=== PATIENT | male | born 1960 | race African-American/Black ===

== ENCOUNTER 2017-10-03 15:04 | Observation (INO) ==
[2017-10-03] MEDS ORDERED: ASPIRIN 325 MG TABLET PO STA (17:56)
[2017-10-03] MEDS ORDERED: ALUM/MAG/SIMETH/LIDO VISC 1:1 30 ML BOTTLE PO STA (17:56)
[2017-10-03] MEDS ORDERED: ONDANSETRON 4 MG/2 ML VIAL IV STA (17:56)
[2017-10-03] MEDS ORDERED: MORPHINE 4 MG/1 ML VIAL IV STA (17:56)
[2017-10-03] MEDS ORDERED: NITROGLYCERIN 2% OINT 1 INCH/GM PACK TOP STA (17:56)
[2017-10-03 18:31] LABS: Albumin 3.7 G/DL (3.4-5.0); Bilirubin,Total 0.9 MG/DL (0.2-1.0); Calcium 8.9 MG/DL (8.5-10.1); Osmolality,Calculated 278.4 MOS/KG (273-304); Total Protein 7.8 G/DL (6.4-8.3)
[2017-10-03 18:42] LABS: Basophils % 0.7 % (0.0-0.8); Eosinophils # 0.2 10*3/uL (0.0-0.87); Eosinophils % 3.6 % (0.00-10.9); Hematocrit 38.7 VOL% (42.0-52.0); Hemoglobin 13.3 GM/DL (14.0-18.0); Immature Granulocytes % 0.5 %; Immature Granulocytes Absolute 0.02 #; Lymphocytes # 1.2 10*3/uL (1.4-4.0); Lymphocytes % 27.4 % (21.2-54.2); Mean Corpuscular HGB Conc 34.4 GM/DL (32-36); Mean Corpuscular Hemoglobin 29 PG (27-34); Mean Corpuscular Volume 85.2 FL (87-102); Mean Platelet Volume 12.6 FL (9.6-12.0); Monocytes # 0.5 10*3/uL (0.11-0.8); Monocytes % 12.9 % (1.7-12.7); Neutrophils # 2.3 10*3/uL (1.4-7.4); Neutrophils % 54.9 % (38.7-73.9); Platelet Count 136 T/CUMM (130-400); Red Blood Count 4.54 MC/CUMM (3.8-5.5); Red Cell Distribution Width 13.3 % (9.3-17.3); White Blood Count 4.2 T/CUMM (4-12)
[2017-10-03] MEDS ORDERED: ENOXAPARIN 100 MG/ML SYRINGE SUBCUT STA (18:53)
[2017-10-03 18:55] LABS: INR 1.1; PT Patient Result 11.6 SECS
[2017-10-03] MEDS ORDERED: MORPHINE 4 MG/1 ML VIAL IV PRN (19:56)
[2017-10-03] MEDS ORDERED: ONDANSETRON 4 MG/2 ML VIAL IV PRN (19:56)
[2017-10-03] MEDS ORDERED: oxyCODONE IR 5 MG TABLET PO PRN (19:59)
[2017-10-03] MEDS ORDERED: ENOXAPARIN 40 MG/0.4 ML SYRINGE SUBCUT SCH (20:00)
[2017-10-03] MEDS ORDERED: KETOROLAC 30 MG/1 ML VIAL IV STA (20:04)
[2017-10-03] MEDS ORDERED: NITROGLYCERIN SL 0.4 MG TABLET SL PRN (20:48)
[2017-10-03] MEDS: PREGABALIN 50 MG CAPSULE PO SCH (22:31)
[2017-10-03] MEDS: GABAPENTIN 400 MG CAPSULE PO SCH (22:32)
[2017-10-03] MEDS: DIAZEPAM 5 MG TABLET PO SCH (22:32)
[2017-10-04 01:00] LABS: Basophils % 0.8 % (0.0-0.8); Eosinophils # 0.1 10*3/uL (0.0-0.87); Eosinophils % 3.7 % (0.00-10.9); Hematocrit 36.8 VOL% (42.0-52.0); Hemoglobin 12.8 GM/DL (14.0-18.0); Immature Granulocytes % 0.3 %; Immature Granulocytes Absolute 0.01 #; Lymphocytes # 1.4 10*3/uL (1.4-4.0); Lymphocytes % 35.7 % (21.2-54.2); Mean Corpuscular HGB Conc 34.8 GM/DL (32-36); Mean Corpuscular Hemoglobin 30 PG (27-34); Monocytes # 0.6 10*3/uL (0.11-0.8); Monocytes % 16.8 % (1.7-12.7); Neutrophils # 1.6 10*3/uL (1.4-7.4); Neutrophils % 42.7 % (38.7-73.9); Platelet Count 134 T/CUMM (130-400); Red Blood Count 4.33 MC/CUMM (3.8-5.5); Red Cell Distribution Width 13.3 % (9.3-17.3); White Blood Count 3.8 T/CUMM (4-12)
[2017-10-04 01:18] LABS: Calcium 8.3 MG/DL (8.5-10.1); Potassium 3.6 MMOL/L (3.5-5.1); Risk Ratio 6.75; Thyroid Stimulating Hormone 1.67 uIU/ml (0.358-3.74); VLDL CHOLESTEROL 107.2 MG/DL
[2017-10-04 01:30] LABS: Band Neutrophils 1 % (0-10); Eosinophils 1 % (0-10); Lymphocytes 53 % (20-55); Segmented Neutrophils 31 % (50-85)
[2017-10-04 01:32] LABS: Giant Platelets Few; Platelet Estimate Normal
[2017-10-04 01:33] LABS: Total Cells Counted 100
[2017-10-04 03:31] LABS: Apearance,Urine Slightly Hazy (Clear); Bilirubin,Urine Negative (Negative); Blood, Urine Moderate mg/dL (Negative); Glucose,Urine (UA) Negative (Negative); Ketones,Urine Negative (Negative); Mucus,Urine Many /LPF (Occasional); Nitrite,Urine Negative (Negative); Protein,Urine Negative; RBC,Urine 41 /HPF (0-4); Squamous Epithelial Cell,Urine Occasional /HPF (0-10); Urine Color Yellow (Yellow); Urine Specific Gravity 1.015 (1.001-1.035); Urine Urobilinogen < 2.0 EU/DL (0.2-1.0); WBC,Urine 10 /HPF (0-6)
[2017-10-04 03:37] LABS: Barbiturates Screen,Urine Negative (Negative); Benzodiazepines Screen,Urine Positive (Negative); Cannabinoid Screen,Urine Negative (Negative); Opiate Screen,Urine Positive (Negative); Phencyclidine Screen,Urine Negative (Negative)
[2017-10-04 10:24] LABS: Troponin I Only 0.095 NG/ML (0.00-0.045)
[2017-10-04] MEDS: DOXAZOSIN 4 MG TABLET PO SCH (11:38)
[2017-10-04] MEDS: GABAPENTIN 400 MG CAPSULE PO SCH ×3 (11:38→20:29)
[2017-10-04] MEDS: PREGABALIN 50 MG CAPSULE PO SCH ×3 (11:39→20:29)
[2017-10-04] MEDS: ASPIRIN EC 81 MG TABLET PO SCH (11:42)
[2017-10-04] MEDS: NAPROXEN 500 MG TABLET PO SCH ×2 (11:42→18:21)
[2017-10-04] MEDS: PANTOPRAZOLE 40 MG TABLET PO SCH (11:43)
[2017-10-04] MEDS: amLODIPine 10 MG TABLET PO SCH (11:43)
[2017-10-04] MEDS: DIAZEPAM 5 MG TABLET PO SCH ×2 (11:44→20:29)
[2017-10-04 13:44] LABS: CKMB % 1.1 %; Troponin I Only 0.068 NG/ML (0.00-0.045)
[2017-10-04] MEDS: SODIUM CHLORIDE 0.9% 1,000 ML IV SCH ×2 (15:32→23:17)
[2017-10-04] MEDS ORDERED: ENOXAPARIN 40 MG/0.4 ML SYRINGE SUBCUT SCH (18:00)
[2017-10-04] MEDS ORDERED: ATORVASTATIN 40 MG TABLET PO SCH (21:00)
[2017-10-05] MEDS ORDERED: POLYETHYLENE GLYCOL POWDER 17 GM PACK PO PRN (03:05)
[2017-10-05] MEDS: SODIUM CHLORIDE 0.9% 1,000 ML IV SCH (07:24)
[2017-10-05 08:04] VITALS: BP 161/86
[2017-10-05] MEDS: PANTOPRAZOLE 40 MG TABLET PO SCH (08:29)
[2017-10-05] MEDS: amLODIPine 10 MG TABLET PO SCH (08:29)
[2017-10-05] MEDS: DIAZEPAM 5 MG TABLET PO SCH (08:29)
[2017-10-05] MEDS: PREGABALIN 50 MG CAPSULE PO SCH (08:29)
[2017-10-05] MEDS: DOXAZOSIN 4 MG TABLET PO SCH (08:29)
[2017-10-05] MEDS: NAPROXEN 500 MG TABLET PO SCH (08:29)
[2017-10-05] MEDS: GABAPENTIN 400 MG CAPSULE PO SCH (08:29)
[2017-10-05] MEDS: ASPIRIN EC 81 MG TABLET PO SCH (08:30)
[2017-10-05 08:59] LABS: CKMB % 1.3 %; Troponin I Only 0.031 NG/ML (0.00-0.045)
== END 2017-10-05 12:50 | disposition home or self-care (01) ==
LOC: N.EDINP 15:04 → N.ED 15:04 → N.4E 21:01
PROVIDERS: ADMIT Internal Medicine; ATTEND Internal Medicine

== ENCOUNTER 2018-06-21 14:22 | Inpatient (IN) ==
[2018-06-21 16:12] LABS: Basophils % 0.4 % (0.0-0.8); Eosinophils # 0.1 10*3/uL (0.0-0.87); Eosinophils % 1.1 % (0.00-10.9); Hematocrit 41.5 VOL% (42.0-52.0); Hemoglobin 13.7 GM/DL (14.0-18.0); Immature Granulocytes % 0.4 %; Immature Granulocytes Absolute 0.02 #; Lymphocytes # 1.2 10*3/uL (1.4-4.0); Lymphocytes % 21.9 % (21.2-54.2); Mean Corpuscular Hemoglobin 29 PG (27-34); Mean Corpuscular Volume 86.5 FL (87-102); Mean Platelet Volume 11.7 FL (9.6-12.0); Monocytes # 0.7 10*3/uL (0.11-0.8); Monocytes % 13.6 % (1.7-12.7); Neutrophils # 3.3 10*3/uL (1.4-7.4); Neutrophils % 62.6 % (38.7-73.9); Platelet Count 117 T/CUMM (130-400); Red Cell Distribution Width 13.9 % (9.3-17.3); White Blood Count 5.3 T/CUMM (4-12)
[2018-06-21 16:20] LABS: INR 1.1; PT Patient Result 11.4 SECS
[2018-06-21 16:57] LABS: Alanine Aminotransferase 48 U/L (16-61); Albumin 3.7 G/DL (3.4-5.0); Alkaline Phosphatase 67 U/L (45-117); Aspartate Amino Transferase 44 U/L (0-37); Blood Urea Nitrogen 16 MG/DL (7-18); CKMB % 1.2 %; Calcium 8.6 MG/DL (8.5-10.1); Glucose 90 MG/DL (74-106); Osmolality,Calculated 279.4 MOS/KG (273-304); Potassium 4.4 MMOL/L (3.5-5.1); Sodium 140 MMOL/L (136-145); Total Protein 7.7 G/DL (6.4-8.3); Troponin I < 0.015 NG/ML (0.00-0.045)
[2018-06-21] MEDS ORDERED: SODIUM CHLORIDE 0.9% 1,000 ML IV STA (17:46)
[2018-06-21 17:57] LABS: Apearance,Urine CLEAR (Clear); Bilirubin,Urine Negative (Negative); Blood, Urine Small mg/dL (Negative); Glucose,Urine (UA) Negative (Negative); Hyaline Casts,Urine 1 /LPF (0-3); Ketones,Urine Negative (Negative); Mucus,Urine Occasional /LPF (Occasional); Nitrite,Urine Negative (Negative); Protein,Urine Negative; RBC,Urine 3 /HPF (0-4); Squamous Epithelial Cell,Urine Occasional /HPF (0-10); Urine Color Yellow (Yellow); Urine Specific Gravity 1.006 (1.001-1.035); Urine Urobilinogen < 2.0 EU/DL (0.2-1.0); WBC,Urine 3 /HPF (0-6)
[2018-06-21] MEDS ORDERED: ZALEPLON 5 MG CAPSULE PO PRN (20:54)
[2018-06-21] MEDS ORDERED: ACETAMINOPHEN 325 MG TABLET PO PRN (20:54)
[2018-06-21] MEDS ORDERED: ONDANSETRON 4 MG/2 ML VIAL IV PRN (20:54)
[2018-06-21] MEDS ORDERED: DOCUSATE SODIUM 100 MG CAPSULE PO PRN (20:54)
[2018-06-21] MEDS ORDERED: MORPHINE 4 MG/1 ML VIAL IV PRN (20:54)
[2018-06-21] MEDS ORDERED: hydrALAZINE 20 MG/1 ML VIAL IV PRN (20:54)
[2018-06-21] MEDS ORDERED: LACTULOSE 20 GM/30 ML UDCUP PO PRN (20:54)
[2018-06-21] MEDS: oxyCODONE IR 5 MG TABLET PO PRN (21:33)
[2018-06-21] MEDS: DIAZEPAM 5 MG TABLET PO SCH (21:33)
[2018-06-21] MEDS: GABAPENTIN 400 MG CAPSULE PO SCH (21:33)
[2018-06-21] MEDS: EZETIMIBE 10 MG TABLET PO SCH (21:34)
[2018-06-21] MEDS: METHOCARBAMOL 500 MG TABLET PO SCH (21:34)
[2018-06-21] MEDS: ENOXAPARIN 40 MG/0.4 ML SYRINGE SUBCUT SCH (21:35)
[2018-06-21] MEDS: SODIUM CHLORIDE 0.45% 1,000 ML IV SCH (21:42)
[2018-06-21 22:21] LABS: CKMB % 1.3 %; Troponin I < 0.015 NG/ML (0.00-0.045)
[2018-06-22 05:00] LABS: Basophils % 0.6 % (0.0-0.8); Eosinophils # 0.1 10*3/uL (0.0-0.87); Eosinophils % 1.7 % (0.00-10.9); Hematocrit 38.6 VOL% (42.0-52.0); Immature Granulocytes % 0.6 %; Immature Granulocytes Absolute 0.03 #; Lymphocytes # 1.4 10*3/uL (1.4-4.0); Lymphocytes % 30.4 % (21.2-54.2); Mean Corpuscular HGB Conc 33.7 GM/DL (32-36); Mean Corpuscular Hemoglobin 29 PG (27-34); Mean Corpuscular Volume 86.2 FL (87-102); Monocytes # 0.6 10*3/uL (0.11-0.8); Monocytes % 13.2 % (1.7-12.7); Neutrophils # 2.5 10*3/uL (1.4-7.4); Neutrophils % 53.5 % (38.7-73.9); Platelet Count 121 T/CUMM (130-400); Red Blood Count 4.48 MC/CUMM (3.8-5.5); White Blood Count 4.7 T/CUMM (4-12)
[2018-06-22] MEDS: SODIUM CHLORIDE 0.45% 1,000 ML IV SCH ×3 (05:24→18:00)
[2018-06-22 05:33] LABS: Alanine Aminotransferase 44 U/L (16-61); Albumin 2.9 G/DL (3.4-5.0); Alkaline Phosphatase 62 U/L (45-117); Aspartate Amino Transferase 34 U/L (0-37); Blood Urea Nitrogen 18 MG/DL (7-18); CKMB % 1.3 %; Calcium 7.9 MG/DL (8.5-10.1); Cholesterol 315 MG/DL (50-200); Glucose 100 MG/DL (74-106); HDL Cholesterol 37 MG/DL (40-60); Osmolality,Calculated 280.4 MOS/KG (273-304); Potassium 3.8 MMOL/L (3.5-5.1); Risk Ratio 8.51; Sodium 140 MMOL/L (136-145); Total Protein 6.5 G/DL (6.4-8.3); Triglycerides 559 MG/DL (2-150); Troponin I < 0.015 NG/ML (0.00-0.045); VLDL CHOLESTEROL 111.8 MG/DL
[2018-06-22] MEDS: GABAPENTIN 400 MG CAPSULE PO SCH (08:42)
[2018-06-22] MEDS: DIAZEPAM 5 MG TABLET PO SCH ×2 (08:43→20:17)
[2018-06-22] MEDS: PANTOPRAZOLE 40 MG TABLET PO SCH (08:43)
[2018-06-22] MEDS: ASPIRIN EC 325 MG TABLET PO SCH (08:43)
[2018-06-22] MEDS: LEVOFLOXACIN 750 MG TABLET PO SCH (08:43)
[2018-06-22] MEDS: oxyCODONE IR 5 MG TABLET PO PRN ×2 (08:47→20:17)
[2018-06-22] MEDS: METHOCARBAMOL 500 MG TABLET PO SCH ×2 (11:35→20:16)
[2018-06-22] MEDS: OMEGA 3 ACID ETHYL ESTERS 1 GM CAPSULE PO SCH ×2 (12:02→20:19)
[2018-06-22] MEDS: PREGABALIN 75 MG CAPSULE PO SCH ×2 (16:30→20:18)
[2018-06-22] MEDS: EZETIMIBE 10 MG TABLET PO SCH (20:17)
[2018-06-22] MEDS: DOXAZOSIN 4 MG TABLET PO SCH (20:18)
[2018-06-22] MEDS: BACLOFEN 10 MG TABLET PO SCH (20:18)
[2018-06-22] MEDS: amLODIPine 10 MG TABLET PO SCH (20:19)
[2018-06-22] MEDS: ENOXAPARIN 40 MG/0.4 ML SYRINGE SUBCUT SCH (20:20)
[2018-06-23] MEDS: SODIUM CHLORIDE 0.45% 1,000 ML IV SCH ×4 (00:57→22:52)
[2018-06-23] MEDS: LEVOFLOXACIN 750 MG TABLET PO SCH (08:55)
[2018-06-23] MEDS: PANTOPRAZOLE 40 MG TABLET PO SCH (08:55)
[2018-06-23] MEDS: DIAZEPAM 5 MG TABLET PO SCH ×2 (08:55→20:41)
[2018-06-23] MEDS: ASPIRIN EC 325 MG TABLET PO SCH (08:55)
[2018-06-23] MEDS: BACLOFEN 10 MG TABLET PO SCH ×2 (08:55→20:41)
[2018-06-23] MEDS: FENOFIBRATE 145 MG TABLET PO SCH (08:55)
[2018-06-23] MEDS: OMEGA 3 ACID ETHYL ESTERS 1 GM CAPSULE PO SCH ×2 (08:55→20:41)
[2018-06-23] MEDS: PREGABALIN 75 MG CAPSULE PO SCH ×3 (08:56→20:42)
[2018-06-23] MEDS: METHOCARBAMOL 500 MG TABLET PO SCH ×2 (08:57→20:47)
[2018-06-23] MEDS: EZETIMIBE 10 MG TABLET PO SCH (20:40)
[2018-06-23] MEDS: DOXAZOSIN 4 MG TABLET PO SCH (20:40)
[2018-06-23] MEDS: amLODIPine 10 MG TABLET PO SCH (20:41)
[2018-06-23] MEDS: ENOXAPARIN 40 MG/0.4 ML SYRINGE SUBCUT SCH (20:42)
[2018-06-24] MEDS: oxyCODONE IR 5 MG TABLET PO PRN (05:52)
[2018-06-24] MEDS: SODIUM CHLORIDE 0.45% 1,000 ML IV SCH ×2 (07:15→08:54)
[2018-06-24 08:03] VITALS: BP 126/91
[2018-06-24 08:41] LABS: CKMB % 1.3 %; Troponin I < 0.015 NG/ML (0.00-0.045)
[2018-06-24] MEDS: DIAZEPAM 5 MG TABLET PO SCH (09:09)
[2018-06-24] MEDS: OMEGA 3 ACID ETHYL ESTERS 1 GM CAPSULE PO SCH (09:09)
[2018-06-24] MEDS: FENOFIBRATE 145 MG TABLET PO SCH (09:09)
[2018-06-24] MEDS: ASPIRIN EC 325 MG TABLET PO SCH (09:09)
[2018-06-24] MEDS: PANTOPRAZOLE 40 MG TABLET PO SCH (09:09)
[2018-06-24] MEDS: LEVOFLOXACIN 750 MG TABLET PO SCH (09:09)
[2018-06-24] MEDS: METHOCARBAMOL 500 MG TABLET PO SCH (09:10)
[2018-06-24] MEDS: PREGABALIN 75 MG CAPSULE PO SCH (09:21)
[2018-06-24] MEDS: BACLOFEN 10 MG TABLET PO SCH (10:04)
== END 2018-06-24 10:25 | disposition home or self-care (01) | DRG 557 ==
LOC: N.ED 14:22 → N.EDINP 19:05 → SUATTDRO 19:05 → N.3E 20:54
PROVIDERS: ADMIT Internal Medicine; ATTEND Internal Medicine Cardiovascular Disease

== ENCOUNTER 2019-11-28 11:03 | Observation (INO) ==
[2019-11-28] MEDS ORDERED: ASPIRIN 325 MG TABLET PO STA (12:04)
[2019-11-28 12:11] LABS: Basophils % 0.1 % (0.0-0.8); Hematocrit 39.6 VOL% (42.0-52.0); Hemoglobin 13.2 GM/DL (14.0-18.0); Immature Granulocytes % 0.9 %; Immature Granulocytes Absolute 0.11 #; Lymphocytes # 1.1 10*3/uL (1.4-4.0); Lymphocytes % 8.8 % (21.2-54.2); Mean Corpuscular HGB Conc 33.3 GM/DL (32-36); Mean Corpuscular Volume 83.4 FL (87-102); Mean Platelet Volume 14.1 FL (9.6-12.0); Monocytes % 7.1 % (1.7-12.7); Neutrophils % 83.1 % (38.7-73.9); Platelet Count 119 T/CUMM (130-400); Red Blood Count 4.75 MC/CUMM (3.8-5.5); Red Cell Distribution Width 15.1 % (9.3-17.3); White Blood Count 12.5 T/CUMM (4-12)
[2019-11-28 12:32] LABS: Albumin 3.5 G/DL (3.4-5.0); Bilirubin,Total 1.1 MG/DL (0.2-1.0); Calcium 9.1 MG/DL (8.5-10.1); Osmolality,Calculated 293.1 MOS/KG (273-304); Total Protein 8.3 G/DL (6.4-8.3)
[2019-11-28 12:43] LABS: Anisocytosis Slight; Platelet Estimate Adequate
[2019-11-28] MEDS ORDERED: NITROGLYCERIN SL 0.4 MG TABLET SL ONE (13:03)
[2019-11-28] MEDS ORDERED: NITROGLYCERIN SL 0.4 MG TABLET SL STA (13:05)
[2019-11-28] MEDS ORDERED: FUROSEMIDE 100 MG/10 ML VIAL IV STA (13:58)
[2019-11-28] MEDS ORDERED: ONDANSETRON 4 MG/2 ML VIAL IV PRN (15:11)
[2019-11-28] MEDS ORDERED: BISACODYL 5 MG TABLET PO PRN (15:11)
[2019-11-28] MEDS ORDERED: hydrALAZINE 20 MG/1 ML VIAL IV PRN (15:11)
[2019-11-28] MEDS ORDERED: GLUCAGON 1 MG VIAL IM PRN (15:11)
[2019-11-28] MEDS ORDERED: DEXTROSE 50% 25 GM/50 ML VIAL IV PRN (15:11)
[2019-11-28] MEDS ORDERED: guaiFENesin/DM ER 600-30 MG TABLET PO PRN (15:11)
[2019-11-28] MEDS ORDERED: ACETAMINOPHEN 325 MG TABLET PO PRN (15:11)
[2019-11-28] MEDS ORDERED: SODIUM CHLORIDE 0.9% 1,000 ML IV SCH (15:30)
[2019-11-28 15:57] LABS: Risk Ratio 4.93; Thyroid Stimulating Hormone 0.442 uIU/ml (0.358-3.74); VLDL CHOLESTEROL 29.8 MG/DL
[2019-11-28] MEDS ORDERED: cefTRIAXone 1,000 MG in SYRINGE 1 EACH IV SCH (16:00)
[2019-11-28] MEDS ORDERED: MORPHINE 4 MG/1 ML VIAL IV PRN (16:26)
[2019-11-28] MEDS ORDERED: ALBUTEROL 0.63 MG/3 ML NEB RESP TX PRN (16:28)
[2019-11-28] MEDS: FUROSEMIDE 40 MG/4 ML VIAL IV SCH (16:43)
[2019-11-28 16:44] LABS: Apearance,Urine CLEAR (Clear); Bilirubin,Urine Negative (Negative); Blood, Urine Negative (Negative); Glucose,Urine (UA) Negative (Negative); Ketones,Urine Negative (Negative); Nitrite,Urine Negative (Negative); Protein,Urine Negative; RBC,Urine 6 /HPF (0-4); Squamous Epithelial Cell,Urine Occasional /HPF (0-10); Urine Color Yellow (Yellow); Urine Specific Gravity 1.019 (1.001-1.035); Urine Urobilinogen < 2.0 EU/DL (0.2-1.0); WBC,Urine 4 /HPF (0-6)
[2019-11-28] MEDS: oxyCODONE IR 5 MG TABLET PO SCH (20:26)
[2019-11-28] MEDS: OMEGA 3 ACID ETHYL ESTERS 1 GM CAPSULE PO SCH (20:28)
[2019-11-28] MEDS: PREGABALIN 75 MG CAPSULE PO SCH (20:29)
[2019-11-28] MEDS ORDERED: DOXAZOSIN 4 MG TABLET PO SCH (21:00)
[2019-11-28] MEDS ORDERED: APIXABAN 5 MG TABLET PO SCH (23:00)
[2019-11-29 06:01] LABS: Hematocrit 40.6 VOL% (42.0-52.0); Hemoglobin 13.7 GM/DL (14.0-18.0); Immature Granulocytes % 0.7 %; Immature Granulocytes Absolute 0.07 #; Lymphocytes # 1.4 10*3/uL (1.4-4.0); Lymphocytes % 13.1 % (21.2-54.2); Mean Corpuscular HGB Conc 33.7 GM/DL (32-36); Mean Corpuscular Volume 82.7 FL (87-102); Mean Platelet Volume 12.7 FL (9.6-12.0); Monocytes % 5.8 % (1.7-12.7); Neutrophils % 80.4 % (38.7-73.9); Platelet Count 136 T/CUMM (130-400); Red Blood Count 4.91 MC/CUMM (3.8-5.5); Red Cell Distribution Width 14.9 % (9.3-17.3); White Blood Count 10.3 T/CUMM (4-12)
[2019-11-29 06:24] LABS: Calcium 8.7 MG/DL (8.5-10.1); Osmolality,Calculated 287.4 MOS/KG (273-304)
[2019-11-29 08:05] VITALS: BP 158/111
[2019-11-29] MEDS: OMEGA 3 ACID ETHYL ESTERS 1 GM CAPSULE PO SCH (08:40)
[2019-11-29] MEDS: FUROSEMIDE 40 MG/4 ML VIAL IV SCH (08:40)
[2019-11-29] MEDS: oxyCODONE IR 5 MG TABLET PO SCH (08:41)
[2019-11-29] MEDS: PREGABALIN 75 MG CAPSULE PO SCH (08:41)
[2019-11-29] MEDS ORDERED: PANTOPRAZOLE 40 MG TABLET PO SCH (09:00)
[2019-11-29] MEDS ORDERED: DILTIAZEM CD 240 MG CAPSULE PO SCH (09:00)
[2019-11-29] MEDS ORDERED: ROSUVASTATIN 20 MG TABLET PO SCH (21:00)
== END 2019-11-29 11:20 | disposition home or self-care (01) ==
LOC: N.EDINP 11:03 → N.ED 11:03 → N.TELES 15:39
PROVIDERS: ADMIT Internal Medicine; ATTEND Internal Medicine